=== PATIENT | female | born 1955 | race Caucasian/White ===

== ENCOUNTER 2017-07-09 06:31 | Day surgery (SDC) | payer MEDICARE, OTHER ==
[~2017-07-09] VITALS: Ht 147.3 cm; Wt 41.8 kg
[~2017-07-09 06:31] MED LIST: ALBU8.5H8 IH; ALEN70TA48 PO; AMLO-511 PO; BUDE10.2 IH; BUDE180H IH; ESCI10TA PO; IBUP-2077 PO; INSU100V12 SQ; LISI-661 PO; MELO-108 PO; METF500T4 PO; METH2.5T6 PO; MONT10TA21 PO; OMEP20 PO; ONDA4 PO; PRED10 PO; PRED5TAB PO; PROMVCC120 PO; SULF500T8 PO; TEMA7.5C17 PO
[2017-07-09] MEDS ORDERED: LIDOCAINE HCL 4% 50 ML SOLUTION TP ONE (06:32)
[2017-07-09] MEDS ORDERED: BENZOCAINE 20% 50 MCG/SPRAY 57 GM TP ONE (06:32)
[2017-07-09] MEDS ORDERED: ALBUTEROL SULFATE 2.5 MG/0.5 ML NEB SOLUTION NEB ONE (06:32)
[2017-07-09] MEDS ORDERED: LIDOCAINE HCL 2% 30 ML JELLY TP ONE (06:32)
[2017-07-09] MEDS ORDERED: FOLI1 PO (07:09)
[2017-07-09] MEDS ORDERED: SODIUM CHLORIDE 0.9% 1,000 ML IV ONE ×2 (07:30)
[2017-07-09] MEDS ORDERED: FentaNYL CITRATE-PF 100 MCG/2 ML VIAL ONE (07:31)
[2017-07-09] MEDS ORDERED: MIDAZOLAM HCL 2 MG/2 ML VIAL ONE (07:31)
[2017-07-09] MEDS ORDERED: DiphenhydrAMINE HCL 50 MG/ML VIAL ONE (07:32)
[2017-07-09] MEDS ORDERED: EPINEPHrine 1:10,000 [1 MG/10 ML] SYRINGE ONE (07:32)
[2017-07-09] MEDS ORDERED: NALOXONE HCL 0.4 MG/ML VIAL ONE (07:32)
[2017-07-09] MEDS ORDERED: FLUMAZENIL 0.1 MG/ML 5 ML VIAL IVP ONE (07:32)
[2017-07-09] MEDS ORDERED: ATROPINE SULFATE 0.1 MG/ML 10 ML SYRINGE IVP ONE (07:33)
[2017-07-09] MEDS ORDERED: SODIUM TETRADECYL SULFATE 3% 60 MG/2 ML VIAL IVP ONE (07:33)
[2017-07-09] MEDS ORDERED: MethylPREDNISolone SOD SUCC 125 MG/2 ML VIAL IVP ONE (09:00)
[2017-07-09] MEDS ORDERED: MethylPREDNISolone SOD SUCC 125 MG/2 ML VIAL ONE (09:37)
[2017-07-09 11:29] LABS: GLUCOSE,POINT OF CARE 116 MG/DL (70-110)
[2017-07-09] MEDS ORDERED: OXYGEN THERAPY IH SCH (20:00)
== END 2017-07-09 10:45 | disposition home or self-care (01) ==
LOC: SURGERY 06:31
PROVIDERS: ATTEND Internal Medicine Critical Care Medicine
DX: J38.4 Edema of larynx (principal); B37.0 Candidal stomatitis; J98.8 Other specified respiratory disorders; J45.909 Unspecified asthma, uncomplicated; E11.9 Type 2 diabetes mellitus without complications
CPT/HCPCS: 31623; 31624; 71010; 82962; 87015 ×2; 87070; 87077; 87101; 87186; 87205; 87220; 88108; 88312; 93005; J2250; J2930; J3010; J7030; J0171; J0461; J1200; J2310; J3490